=== PATIENT | female | born 2000 | race Caucasian/White ===

== ENCOUNTER 2023-04-23 03:15 | Emergency (ER) | payer OTHER, SELFPAY ==
[2023-04-23 03:21] VITALS: BP 117/72; PULSE 92; RESP 18; TEMP 36.4; O2SAT 98; BMI 33.5
--- NOTE | 2023-04-23 03:33 | ED.GENADUL1 ---
HPI - General Adult General Chief complaint: Ear Stated complaint: Earache Headache Time Seen by Provider: 04/23/23 03:25 Source: patient Mode of arrival: walk-in History of Present Illness HPI narrative: 22-year-old female presents for headache. It started about 3:00 PM, about twelve hours ago. It's on the left side of her head and was not associated with a trauma fever or stiff neck. She took some ibuprofen but was nauseous and vomited and it didn't help. No localized weakness. She gets frequent headaches similar to this. The pain is moderate and associated with nausea and continuous. Related Data Allergies Allergy/AdvReac Type Severity Reaction Status Date / Time No Known Drug Allergies Allergy Verified 04/23/23 03:24 Review of Systems ROS Narrative A ten point review of systems is negative except as noted above. PFSH PFS Social History Smoking status: Never smoker Exam Narrative Exam Narrative: Nurses note and vital signs reviewed and patient is not hypoxic. General: The patient appears well and in no apparent distress. Patient is resting comfortably on cart. Skin: Warm, dry, no pallor noted. There is no rash noted. Head: Normocephalic, atraumatic; neck supple, no nuchal rigidity. Eye: Normal conjunctiva, no drainage, EOMI. PERRL Ears, Nose, Mouth, and Throat: oral mucosa is moist. Nares patent. both tympanic membranes are normal in appearance Cardiovascular: Regular Rate and Rhythm Respiratory: Patient is in no distress, no accessory muscle use, lungs are clear to auscultation, no wheezing, rales or rhonchi Back: non-tender GI: Normal bowel sounds, no tenderness to palpation, no masses appreciated. No rebound, guarding, or rigidity noted. Musculoskeletal: The patient has no evidence of calf tenderness, no pitting edema, symmetrical pulses noted bilaterally Neurological: A&O, normal speech; upper and lower extremity strength five out five and symmetric Psychiatric: Cooperative Constitutional Vital Signs, click to edit/add: Last Vital Signs Temp 97.5 F L 04/23/23 03:21 Pulse 92 H 04/23/23 03:21 Resp 18 04/23/23 03:21 BP 117/72 04/23/23 03:21 Pulse Ox 98 04/23/23 03:21 O2 Del Method Room Air 04/23/23 03:21 Course Vital Signs Vital signs: Vital Signs Temperature 97.5 F L 04/23/23 03:21 Pulse Rate 92 H 04/23/23 03:21 Respiratory Rate 18 04/23/23 03:21 Blood Pressure 117/72 04/23/23 03:21 Pulse Oximetry 98 04/23/23 03:21 Oxygen Delivery Method Room Air 04/23/23 03:21 Temperature 97.5 F L 04/23/23 03:21 Pulse Rate 92 H 04/23/23 03:21 Respiratory Rate 18 04/23/23 03:21 Blood Pressure 117/72 04/23/23 03:21 Pulse Oximetry 98 04/23/23 03:21 Oxygen Delivery Method Room Air 04/23/23 03:21 Medical Decision Making MDM Narrative Medical decision making narrative: the patient is given IM Toradol and Phenergan and feels much better now. She is able to be discharged home. Her mother is driving her home. Treatment diagnosis and follow-up were discussed with the patient. I've no clinical suspicion of acute intracranial pathology. Differential Diagnosis Differential Diagnosis: mmigraine headache, tension headache, nonspecific headache Discharge Plan Discharge Chief Complaint: Ear Clinical Impression: Headache Patient Disposition: Home, Self-Care Time of Disposition Decision: 04:21 Condition: Good Mode of Transportation: Private Vehicle Instructions: Acute Headache (ED) Stand Alone Forms: Portal Instructions Referrals: Bernadine Reza MD [Primary Care Provider] - 1 week
[2023-04-23] MEDS: KETOROLAC TROMETHAMINE 60 MG/2 ML VIAL IM (03:52)
[2023-04-23] MEDS: PROMETHAZINE HCL 25 MG/ML VIAL IM (03:52)
== END 2023-04-23 04:38 | disposition home or self-care (01) ==
PROVIDERS: Emergency Provider Emergency Medicine; PCP Family Medicine
DX: R51.9 Headache, unspecified (principal)
CPT/HCPCS: 96372; 99284

== ENCOUNTER 2023-12-05 21:45 | Outpatient (REF) | payer OTHER, SELFPAY ==
[2023-12-09 15:08] LABS: Age Gdln ACOG Testing Note (.); IGP, rfx Aptima HPV ASCU Note (.)
== END 2023-12-05 21:46 | disposition home or self-care (01) ==
LOC: LAB 21:45
PROVIDERS: PCP Family Medicine; Visit Provider Obstetrics & Gynecology
DX: Z01.419 Encounter for gynecological examination (general) (routine) without abnormal findings (principal)
CPT/HCPCS: G0145

== ENCOUNTER 2024-12-19 19:41 | Outpatient (REF) | payer OTHER, SELFPAY ==
[2024-12-24 12:08] LABS: Age Gdln ACOG Testing Note (.); IGP, rfx Aptima HPV ASCU Note (.)
== END 2024-12-19 19:42 | disposition home or self-care (01) ==
LOC: LAB 19:41
PROVIDERS: PCP Family Medicine; Visit Provider Obstetrics & Gynecology
DX: Z01.419 Encounter for gynecological examination (general) (routine) without abnormal findings (principal)
CPT/HCPCS: 88175